=== PATIENT | female | born 1995 | race Caucasian/White ===

== ENCOUNTER → 2025-09-02 | Outpatient (REF) | payer OTHER | LOC: M LAB REF 12:22 | PROVIDERS: ATTEND Nurse Practitioner | DX: N91.2 Amenorrhea, unspecified (principal) ==

== ENCOUNTER → 2025-09-10 | Outpatient (REF) | LOC: EDBD 09:41 → M LAB 09:41 | PROVIDERS: ATTEND Family Medicine | DX: Z02.1 Encounter for pre-employment examination (principal) ==

== ENCOUNTER → 2025-09-12 | Outpatient (REF) | payer OTHER ==
[~2025-09-12] MED LIST: FAMO1TAB11; NITR100C3 PO
== END ==
LOC: M LAB REF 16:23
PROVIDERS: ATTEND Nurse Practitioner
DX: N91.2 Amenorrhea, unspecified (principal)

== ENCOUNTER 2025-09-17 20:20 | Emergency (ER) | payer OTHER ==
[~2025-09-17] VITALS: Ht 157.5 cm; Wt 81.5 kg
[2025-09-17] MEDS ORDERED: FAMO1TAB11 (20:38)
[2025-09-17 21:11] LABS: BASO # 0.0 10^3/uL (0.0-0.2); BASO % 0.3 % (0.0-1.0); EOS # 0.1 10^3/uL (0.0-0.5); EOS % 0.9 % (0.0-3.0); LYMPH # 3.1 10^3/uL (1.5-5.0); LYMPH % 31.6 % (24.0-44.0); MONO # 0.8 10^3/uL (0.0-0.8); MONO % 7.7 % (2.0-8.0); NEUTROPHILS # 5.9 10^3/uL (1.5-8.5); NEUTROPHILS % 59.2 % (36.0-66.0); PLATELET COUNT, AUTOMATED 286 10^3/uL (150-450)
[2025-09-17 21:18] LABS: APPEARANCE, URINE CLEAR (CLEAR); BACTERIA, URINE AUTO 1+ (NEGATIVE); BILIRUBIN, URINE AUTO NEGATIVE (NEGATIVE); BLOOD, URINE BLOOD NEGATIVE (NEGATIVE); GLUCOSE, URINE (UA) AUTO NEGATIVE (NEGATIVE); KETONE, URINE AUTO NEGATIVE (NEGATIVE); LEUKOCYTE ESTERASE, URINE AUTO TRACE (NEGATIVE); NITRITE, URINE AUTO NEGATIVE (NEGATIVE); PROTEIN, URINE AUTO NEGATIVE (NEGATIVE); RBC, URINE AUTO 1 /HPF (0-3); SPECIFIC GRAVITY URINE AUTO 1.016 (1.002-1.035); SQUAMOUS EPITHELIAL CELL UR AU 1 /HPF (0-6); UROBILINOGEN, URINE AUTO 0.2 mg/dL (0.0-2.0); WBC, URINE AUTO 1 /HPF (0-3)
[2025-09-17 21:37] LABS: CALCIUM LEVEL 8.6 MG/DL (8.5-10.1); CARBON DIOXIDE LEVEL 26 MMOL/L (20-31); CHLORIDE LEVEL 105 MMOL/L (98-107); CREATININE FOR GFR 0.82 MG/DL (0.55-1.30); GLOMERULAR FILTRATION RATE > 90.0 (>60); POTASSIUM SERUM 3.8 MMOL/L (3.5-5.1); SODIUM LEVEL 139 MMOL/L (136-145)
[2025-09-17] MEDS: ONDANSETRON 4MG ORAL DISINTEGRATING TAB PO ONE (23:27)
[2025-09-18 01:54] VITALS: BP 114/59; TEMP 97.8; O2SAT 98
[2025-09-18] MEDS ORDERED: NITR100C3 PO (01:57)
[2025-09-18] MEDS: NITROFURANTOIN 100 MG CAP PO ONE (02:00)
== END 2025-09-18 02:05 | disposition home or self-care (01) ==
LOC: M ED 20:20
DX: O23.11 Infections of bladder in pregnancy, first trimester (principal); O20.8 Other hemorrhage in early pregnancy; Z88.0 Allergy status to penicillin; Z79.2 Long term (current) use of antibiotics; Z79.899 Other long term (current) drug therapy; Z3A.01 Less than 8 weeks gestation of pregnancy

== ENCOUNTER 2025-09-18 07:40 | Emergency (ER) | payer OTHER ==
[~2025-09-18] VITALS: Ht 157.5 cm; Wt 80.7 kg
[2025-09-18 10:37] VITALS: BP 120/64; TEMP 97.9; O2SAT 99
== END 2025-09-18 10:58 | disposition home or self-care (01) ==
LOC: M ED 07:40
DX: O20.0 Threatened abortion (principal); Z88.0 Allergy status to penicillin; Z79.899 Other long term (current) drug therapy; Z3A.01 Less than 8 weeks gestation of pregnancy